=== PATIENT | female | born 1990 ===

== ENCOUNTER 2021-09-05 09:58 | Emergency (ER) | payer OTHER, MEDICAID ==
[~2021-09-05] VITALS: Ht 165.1 cm; Wt 79.5 kg
[2021-09-05 10:01] VITALS: BP 169/111
[2021-09-05] MEDS ORDERED: CLON-528 PO (10:10)
== END 2021-09-05 10:21 | disposition home or self-care (01) ==
LOC: ER 09:59
DX: F41.9 Anxiety disorder, unspecified (principal); R00.0 Tachycardia, unspecified; Z88.0 Allergy status to penicillin; Z79.899 Other long term (current) drug therapy
CPT/HCPCS: 99283